=== PATIENT | female | born 1935 | race Caucasian/White ===

== ENCOUNTER 2019-08-02 18:33 | Inpatient (IN) | payer MEDICARE, MEDICAID ==
--- NOTE | 2019-08-02 18:51 | ED Physician Chart ---
ED Chief Complaint/HPI - Patient Information Date Seen:: 08/02/19 Time Seen:: 18:35 Chief Complaint:: frequent falls History of Present Illness:: Patient fell yesterday evening and again at 11:00 this morning. It struck her head when she fell this morning. No loss of consciousness. Patient has been anorexic for 5-6 days. For 3 days she's had diarrhea about 3 times a day. Patient had periumbilical pain 1 hour ago but denies abdominal pain at present. Patient has posterior neck pain. Historian:: Patient, Family Member Review:: Nurse's Note Reviewed ED Review of Systems - Review of Systems General/Constitutional: No fever, No chills Skin: No skin lesions Head: No headache Eyes: No loss of vision ENT: No earache Neck: Neck pain Cardio Vascular: No chest pain, No palpitations Pulmonary: No SOB GI: No nausea, No vomiting, No diarrhea G/U: No dysuria Musculoskeletal: Bone or joint pain Psychiatric: Prior psych history Hematopoietic: No bruising Allergic/Immuno: No urticaria Neurological: No syncope ED Past Medical History - Past Medical History Past Medical History: HTN, Dementia Family History: Diabetes Melitus, HTN Social History: Other (former smoker and alcohol consumer) Surgical History: other (left femur) Psychiatricy History: Dementia Family Medical History - Family Member Mother History Unknown: Yes ED Physical Exam - Physical Examination General/Constitutional: Awake, Well-developed, well-nourished, Alert, No distress Head: Atraumatic Other Head comments:: no swelling, tenderness or deformity Eyes: Lids, conjuctiva normal, PERRL Skin: Nl inspection, No rash ENMT: External ears, nose nl, Nasal exam nl Neck: No stridor Other Neck comments:: Tenderness without deformity of cervical spine; 85 of forward flexion of the neck Respiratory: Nl effort/Exclusion, Clear to Auscultation, No Wheeze/Rhonchi/Rales Cardio Vascular: RRR, No murmur, gallop, rubs, NL S1 S2 GI: No organomegaly, No hernia, Normal BS's Other GI comments:: Epigastric and periumbilical tenderness : No CVA tenderness Other Extremities comments:: Right groin tenderness Neuro/Psych: No focal deficits Other Neuro/Psych comments:: Slightly decreased equal hand grasp Misc: Normal back ED Labs/Radiology/EKG Results - Radiology Results Results: Chest x-ray shows cardiomegaly, calcification of the aortic arch and elevation of right hemidiaphragm; AP of the pelvis shows hardware in lumbar spine and repair left hip fracture with rods - EKG Interpretations Rate & Rhythm: sinus rhythm with a rate of 60 [place]: R axis Comments:: Left ventricular hypertrophy ED Assessment - Assessment General Assessment: Patient endorsed to Dr. Weinstein at 1900 ED Septic Shock - . Is Septic Shock (SBP<90, OR Lactate>4 mmol\L) present?: No
[2019-08-02] MEDS ORDERED: Sodium Chloride 0.9% 1,000 ML IV ONE (19:09)
[2019-08-02 19:33] LABS: ANION GAP 10.1 (7.0-16.0); BUN - UREA NITROGEN 19 mg/dL (7-25); CARBON DIOXIDE 25.5 mEq/L (21.0-31.0); CHLORIDE 102 mEq/L (98-107); CREATININE - SERUM 0.8 mg/dL (0.6-1.2); GLUCOSE 116 mg/dL (70-105); LIPASE 39 U/L (11-82); POTASSIUM SERUM 3.6 mEq/L (3.5-5.1); SODIUM SERUM 134 mEq/L (136-145)
[2019-08-02 20:03] LABS: URINE SOURCE CLEAN C
[2019-08-02 20:07] LABS: URINE BILIRUBIN NEGATIVE (NEGATIVE); URINE BLOOD MODERATE (NEGATIVE); URINE GLUCOSE (UA) NEGATIVE (NEGATIVE); URINE KETONE NEGATIVE (NEGATIVE); URINE LEUKOCYTE ESTERASE LARGE (NEGATIVE); URINE MICROSCOPIC INDICATED? YES; URINE NITRATE POSITIVE (NEGATIVE); URINE PH 6.5 (4.6 - 8.0); URINE PROTEIN NEGATIVE (NEGATIVE); URINE UROBILINOGEN 0.2 E.U./dL (0.2 - 1.0)
[2019-08-02 20:44] LABS: URINE CLARITY HAZY (CLEAR); URINE COLOR YELLOW
[2019-08-02 20:44] LABS: % BASOPHILS 0.3 % (0.0-2.0); % EOSINOPHILS 2.7 % (0.0-5.0); % LYMPHOCYTES 34.3 % (20.0-50.0); % MONOCYTES 8.2 % (2.0-10.0); % NEUTROPHILS 54.5 % (40.0-80.0); EOSINOPHILE ABSOLUTE 0.2 Th/cmm (0.1-0.4); HEMATOCRIT 36.1 % (41.0-60); HEMOGLOBIN 12.3 gm/dL (12-16); LYMPHOCYTE ABSOLUTE 2.6 Th/cmm (1.5-3.0); MEAN CELL VOLUME 88.3 fl (81-100); MONOCYTE ABSOLUTE 0.6 Th/cmm (0.3-1.0); NEUTROPHILE ABSOLUTE 4.1 Th/cmm (1.8-8.0); PLATELET COUNT 230 Th/cmm (150-400); RED BLOOD COUNT 4.09 Mil/cmm (3.80-5.20); RED CELL DISTRIBUTION WIDTH 13.3 % (11.5-20.0); WHITE BLOOD COUNT 7.5 Th/cmm (4.8-10.8)
[2019-08-02 20:48] LABS: URINE BACTERIA 4+ /hpf (NONE SEEN); URINE EPITHELIAL CELLS MODERATE /lpf (FEW); URINE WBC 25-50 /hpf (0-5)
[2019-08-02] MEDS: D5-0.45NS w/20 mEq KCL 1,000 ML IV SCH (23:22)
[2019-08-03 00:12] VITALS: BP 199/81
[2019-08-03] MEDS: Cefepime 1 GM in Sodium Chloride 0.9% 50 ML IV SCH ×2 (08:49→20:28)
--- NOTE | 2019-08-03 08:55 | Diagnostic Imaging Report ---
Exam: CT examination of brain. HISTORY: Frequent falls Total DLP equals 319 CTDI equals 19.1 FINDINGS: Multiple contiguous thin section of the brain were obtained from the base of skull to the vertex without administration of contrast material, no prior studies available comparison. The study demonstrates prominence of cerebral sulci and ventricles consistent with atrophy. There is no evidence of hemorrhage midline shift or edema. There is a question small lacunar infarct in the left basal ganglia. The ventricular systems intact. The bony calvarium is normal. The visualized paranasal sinuses are well aerated. IMPRESSION: Atrophy, small lacunar infarct left basal ganglia.
--- NOTE | 2019-08-03 08:59 | Diagnostic Imaging Report ---
Exam: CT examination cervical spine HISTORY: Tenderness Total DLP equals 319 CTDI equals 19.1 FINDINGS: Multiple contiguous thin section of the cervical spine were obtained in axial plane with coronal sagittal reconstruction technique. No prior studies available comparison. The study demonstrates no evidence of acute fracture dislocation. Degenerative osteophytes noted with narrowing of the intravertebral disc spaces at the C4-C5, C5-C6 and C6-7 intervertebral disc spaces. Posterior spurring and bridging. Neural canal is intact. There is no evidence of spinal stenosis. No prevertebral soft tissue swelling IMPRESSION: Degenerative osteoarthritis cervical spine.
--- NOTE | 2019-08-03 09:01 | Diagnostic Imaging Report ---
Portable chest x-ray Time: 1857 History: Pain Allowing for portable technique the heart size is normal. No focal pulmonary parenchymal processes. No hilar or mediastinal abnormalities. Impression: No acute abnormalities.
--- NOTE | 2019-08-03 09:01 | Diagnostic Imaging Report ---
Exam: Pelvis HISTORY: Right groin pain FINDINGS: Portable summation of pelvis at 1903 views single frontal projection. The study demonstrates a postoperative fusion of the lower lumbar sacral spine. Left hip hardware in place. There is no evidence of fracture dislocation. The right hip joint is intact. The sacroiliac joints intact. IMPRESSION: unremarkable examination of pelvis. Blunting of the left femur with single intratrochanteric screw in place. Heterotropic bone formation left lesser trochanter.
[2019-08-03] MEDS: D5-0.45NS w/20 mEq KCL 1,000 ML IV SCH (11:57)
--- NOTE | 2019-08-03 18:44 | History & Physical ---
ADMIT DATE: 08/02/2019 CHIEF COMPLAINT: Generalized weakness, confusion. HISTORY OF PRESENT ILLNESS: The patient is an 83-year-old female with long history of hypertension, degenerative joint disease, presented to the Emergency Room with confusion. Initial workup significant for urinary infection, acute metabolic encephalopathy, admitted to the hospital, started on IV fluid and antibiotic. No nausea, no vomiting, no abdominal pain, no fever, no chills. PAST MEDICAL HISTORY: Significant for hypertension, degenerative joint disease, mild dementia. PAST SURGICAL HISTORY: No recent surgery. ALLERGIES: None. MEDICATIONS: Follow admission reconciliation. SOCIAL HISTORY: No smoking, no alcohol, no drug. FAMILY HISTORY: Noncontributory. REVIEW OF SYSTEMS: RENAL SYSTEM: No history of chronic renal disorder. CARDIOVASCULAR SYSTEM: No coronary artery disease. ENDOCRINE SYSTEM: No diabetes or thyroid problem. GASTROINTESTINAL SYSTEM: No upper or lower gastrointestinal bleed. NEUROLOGICAL SYSTEM: No seizure disorder. SKELETOMUSCULAR SYSTEM: No muscular dystrophy. HEMATOLOGICAL SYSTEM: No bleeding tendencies. RESPIRATORY SYSTEM: No asthma. GENITOURINARY: No dysuria or hematuria. PHYSICAL EXAMINATION: GENERAL: She is awake, alert, mildly confused. VITAL SIGNS: Temperature is 99, heart rate is 94, blood pressure 149/72. HEENT: Normocephalic. Pupils reacting equal to light and accommodation. Sclerae clear. NECK: Supple. Negative for lymphadenopathy, JVD or bruit. CHEST: Entry of air bilaterally normal. No rhonchi or wheezing. HEART: S1, S2 normal. No gallop rhythm. ABDOMEN: Soft, bowel sounds positive. EXTREMITIES: No edema. BACK: No tenderness. SKIN: Intact. NEUROLOGIC: She is awake, alert, mildly confused. No focal muscle deficits. Cranial nerves 2-12 grossly intact. LABORATORY DATA: White blood 7.5, hemoglobin 12.3, hematocrit 36.1 and platelet 230. Sodium 134, potassium 3.6, BUN is 19, creatinine 0.8, glucose 116. Urinalysis positive for nitrite, white blood cell is 25-50. ASSESSMENT: 1. Acute metabolic encephalopathy. 2. Urinary tract infection. 3. Hypertension. 4. Degenerative joint disease. PLAN: The patient admitted to the hospital under Dr. Ledezma's service. Started on IV fluid, antibiotic, regular diet. The patient will resume her home medication. The patient is a full code. [facility]# [id number]
[2019-08-04] MEDS: D5-0.45NS w/20 mEq KCL 1,000 ML IV SCH ×2 (06:31→22:05)
[2019-08-04] MEDS ORDERED: Non-Formulary Item 1 EA (Lisinopril [Lisinopril] 40 MG) PO SCH (09:00)
[2019-08-04] MEDS: Cefepime 1 GM in Sodium Chloride 0.9% 50 ML IV SCH ×2 (09:09→20:33)
[2019-08-04] MEDS: Enoxaparin 40 mg/0.4 mL 0.4mL Syr SUBQ SCH (09:10)
[2019-08-04] MEDS ORDERED: Probiotic Screen MC PRN (11:05)
[2019-08-04] MEDS ORDERED: Acetaminophen 500 MG TAB PO PRN (21:06)
--- NOTE | 2019-08-04 22:37 | Internal Medicine Prog Note ---
Internal Medicine Subjective - Subjective Service Date: 08/04/19 Patient seen and examined:: without staff (SHE HAS ABDOMINAL PAIN AND THROUGHING UP.) Patient is:: awake, verbal, in bed, talking Per staff patient has:: no adverse event Internal Medicine Objective - Results Result Diagrams: 08/02/19 19:10 08/02/19 19:10 Recent Labs: Laboratory Last Values WBC 7.5 Th/cmm (4.8-10.8) 08/02/19 19:10 RBC 4.09 Mil/cmm (3.80-5.20) 08/02/19 19:10 Hgb 12.3 gm/dL (12-16) 08/02/19 19:10 Hct 36.1 % (41.0-60) L 08/02/19 19:10 MCV 88.3 fl (81-100) 08/02/19 19:10 MCH 30.0 pg (27.0-31.0) 08/02/19 19:10 MCHC Differential 34.0 pg (28.0-36.0) 08/02/19 19:10 RDW 13.3 % (11.5-20.0) 08/02/19 19:10 Plt Count 230 Th/cmm (150-400) 08/02/19 19:10 MPV 9.9 fl 08/02/19 19:10 Neutrophils % 54.5 % (40.0-80.0) 08/02/19 19:10 Lymphocytes % 34.3 % (20.0-50.0) 08/02/19 19:10 Monocytes % 8.2 % (2.0-10.0) 08/02/19 19:10 Eosinophils % 2.7 % (0.0-5.0) 08/02/19 19:10 Basophils % 0.3 % (0.0-2.0) 08/02/19 19:10 Sodium 134 mEq/L (136-145) L 08/02/19 19:10 Potassium 3.6 mEq/L (3.5-5.1) 08/02/19 19:10 Chloride 102 mEq/L (98-107) 08/02/19 19:10 Carbon Dioxide 25.5 mEq/L (21.0-31.0) 08/02/19 19:10 Anion Gap 10.1 (7.0-16.0) 08/02/19 19:10 BUN 19 mg/dL (7-25) 08/02/19 19:10 Creatinine 0.8 mg/dL (0.6-1.2) 08/02/19 19:10 Est GFR ( Amer) TNP 08/02/19 19:10 Est GFR (Non-Af Amer) TNP 08/02/19 19:10 BUN/Creatinine Ratio 23.8 08/02/19 19:10 Glucose 116 mg/dL (70-105) H 08/02/19 19:10 Calcium 9.0 mg/dL (8.6-10.3) 08/02/19 19:10 Lipase 39 U/L (11-82) 08/02/19 19:10 Urine Source CLEAN C 08/02/19 20:00 Urine Color YELLOW 08/02/19 20:00 Urine Clarity HAZY (CLEAR) 08/02/19 20:00 Urine pH 6.5 (4.6 - 8.0) 08/02/19 20:00 Ur Specific [place] 1.010 (1.005-1.030) 08/02/19 20:00 Urine Protein NEGATIVE mg/dL (NEGATIVE) 08/02/19 20:00 Urine Glucose (UA) NEGATIVE mg/dL (NEGATIVE) 08/02/19 20:00 Urine Ketones NEGATIVE mg/dL (NEGATIVE) 08/02/19 20:00 Urine Blood MODERATE (NEGATIVE) H 08/02/19 20:00 Urine Nitrate POSITIVE (NEGATIVE) H 08/02/19 20:00 Urine Bilirubin NEGATIVE (NEGATIVE) 08/02/19 20:00 Urine Urobilinogen 0.2 E.U./dL (0.2 - 1.0) 08/02/19 20:00 Ur Leukocyte Esterase LARGE (NEGATIVE) H 08/02/19 20:00 Urine RBC 5-10 /hpf (0-5) H 08/02/19 20:00 Urine WBC 25-50 /hpf (0-5) H 08/02/19 20:00 Ur Epithelial Cells MODERATE /lpf (FEW) 08/02/19 20:00 Urine Bacteria 4+ /hpf (NONE SEEN) H 08/02/19 20:00 - Physical Exam Vitals and I&O: Vital Signs Temp 98 F 08/04/19 20:00 Pulse 67 08/04/19 22:07 Resp 18 08/04/19 20:00 BP 185/78 08/04/19 22:07 Pulse Ox 97 08/04/19 20:00 Intake & Output 08/04/19 08/04/19 08/05/19 06:59 18:59 06:59 Intake Total 3336 468 6916 Balance 7508 695 5069 Weight (lbs) 63.957 kg 64.864 kg Intake: Intake, IV Amount 1050 50 1000 Cefepime 1 gm In Sodium 50 50 Chloride 0.9% 50 ml @ 100 mls/hr IV Q12HR [facility] Rx#: [id number] D5-0.45NS w/20 mEq KCL 1, 1000 1000 000 ml @ 75 mls/hr IV . [id number] [facility] Rx#:[id number] Oral 250 650 Other: # Voids 2 3 # Bowel Movements 1 0 Weight Source Bedscale Bedscale Active Medications: Current Medications Acetaminophen (Tylenol Extra Strength) 500 mg PO Q4H PRN PRN Reason: Pain (Mild) Stop: 10/03/19 21:05 Last Admin: 08/04/19 22:07 Dose: 500 mg Aspirin (Ecotrin) 81 mg PO DAILY [facility] Stop: 10/03/19 08:59 Last Admin: 08/04/19 09:09 Dose: 81 mg Atenolol (Tenormin) 25 mg PO BID [facility] Stop: 10/03/19 08:59 Last Admin: 08/04/19 17:32 Dose: 25 mg Enoxaparin Sodium (Lovenox) 40 mg SUBQ DAILY [facility] Stop: 10/03/19 08:59 Last Admin: 08/04/19 09:10 Dose: 40 mg Hydralazine HCl (Apresoline 20 Mg/Ml) 10 mg IV Q4HR PRN PRN Reason: SBP ABOVE 160 Stop: 10/02/19 01:12 Last Admin: 08/04/19 22:07 Dose: 10 mg Cefepime HCl 1 gm/ Sodium (Chloride) 50 mls @ 100 mls/hr IV Q12HR [facility] Stop: 10/02/19 08:59 Last Admin: 08/04/19 20:33 Dose: 100 mls/hr Potassium Chloride/Dextrose/Sod Cl (D5-0.45ns W/20 Meq Kcl) 1,000 mls @ 75 mls/ hr IV .[id number] [facility] Stop: 10/01/19 22:59 Last Admin: 08/04/19 22:05 Dose: 75 mls/hr Lactobacillus Rhamnosus (Culturelle 15b) 1 each PO DAILY [facility] Stop: 10/04/19 08:59 Losartan Potassium (Cozaar) 50 mg PO BID [facility] Stop: 10/02/19 01:14 Last Admin: 08/04/19 17:32 Dose: 50 mg Miscellaneous (Lisinopril [Lisinopril]) 40 mg PO DAILY [facility] Stop: 10/03/19 08:59 Miscellaneous (Probiotic Screen) 1 ea MC PRN PRN PRN Reason: PROTOCOL Stop: 10/03/19 11:04 Ondansetron HCl (Zofran) 4 mg IV Q4H PRN PRN Reason: Nausea / Vomiting Stop: 10/03/19 21:02 Temazepam (Restoril) 15 mg PO HS PRN; Protocol PRN Reason: Insomnia Stop: 10/03/19 21:04 General: alert HEENT: NC/AT, PERRLA, EOMI, anicteric sclerae, throat clear Neck: Supple, No JVD, No thyromegaly, +2 carotid pulse wo bruit, No LAD Lungs: CTAB Cardiovascular: RRR, Normal S1, Normal S2, without murmur Abdomen: soft, tender Extremities: clear Neurological: no change Internal Medicine Assmt/Plan - Assessment Assessment: 1.ACUTE ABDOMINAL PAIN. 2.UTI. 3.HTN - Plan Plan: ZOFRAN 4 MG IV EVERY 4 H PRN FOR NAUSEA.ABDOMINAL US IN AM. Nutritional Asmnt/Malnutr-PDOC - Dietary Evaluation Malnutrition Findings (Please click <Entered> for more info): Nutritional Asmnt/Malnutrition Start: 08/03/19 14: 23 Text: Status: Complete Freq: Protocol: Document 08/03/19 14:23 OKSANA (Rec: 08/03/19 14:39 [email or web address]) Nutritional Asmnt/Malnutrition Patient General Information Nutritional Screening Low Risk Consult Diagnosis Dehydration and UTI Pertinent Medical Hx/Surgical Hx HTN, Dementia Subjective Information IA/Consult: Wound RT lower flank Pt is a 83-year-old female admitted on 08/02 d/t dehydration and UTI. Per ED physician chart (08/02), PT fell evening on 08/01 and again at 11am on 08/02; Pt has been anorexic x 5-6 days and had diarrhea 3x/day for 3 days. Received consult order for wound - RT lower flank. Per ABIMAEL Bartlett, there is a small active wound at RT lower flank and stage not noted. Pending photo taken for wound and wound care assessment. Pt ate 25% breakfast today. Visited Pt at lunch time, Pt stated she currently does not have appetite and usually does not eat breakfast at home. Pt ate 50% lunch and has no concern on food texture. Assessed Pts food preference and forwarded to dietitian teaching. Pt requested Ensure Enlive since she prefers liquids. Added Ensure Enlive BID for improved PO intake and meeting nutrient needs to support wound healing . Will continue monitor on PO intake and wound healing progress. HT: 51 WT: 141 LB (64.09 kg) BMI: 26.64 (Overweight) GI: WNL, Soft, Flat, Non- Tender BM: Not Noted I/O: 120/Not Noted Skin: Warm, Dry, Elastic, Intact, Area of Concern Wound: Pressure area and incision on RT lower flank Lionel: 16 Diet Order: Mechanical Soft Estimated Energy Needs: ( Geriatric, CBW) 9207-9744 kcals (25-30 kcals/ kg) 64-77 g Pro (1-1.2 g/kg) 8467-8691 ml (25-30 ml/kg) Current Diet Order/ Nutrition Support Mechanical Soft Pertinent Medications Cozaar, D5-0.45ns w/20 Meq Kcl Pertinent Labs 08/02: Hgb/Hct 12.3/36.1, Na 134 , Glucose 116 Nutritional Hx/Data Height 1.55 m Height (Calculated Centimeters) 154.9 Current Weight (lbs) 63.957 kg Weight (Calculated Kilograms) 64.0 Weight (Calculated Grams) 16876.5 [place] Body Weight 47.8 kg % [place] Body Weight 134 Body Mass Index (BMI) 26.6 Weight Status Overweight GI Symptoms Last BM Not Noted Skin Integrity/Comment: Skin: Warm, Dry, Elastic, Intact, Area of Concern Wound: Pressure area and incision on RT lower flank Lionel: 16 Current %PO Poor (25-49%) Estimated Nutritional Goals BEE in Kcals: Using Current wt Calories/Kcals/Kg 25-30 Kcals Calculated 8005-3414 Protein: Using Current wt Protein g/k-1.2 Protein Calculated 64-77 Fluid: ml 5888-8525 ml (25-30 ml/kg) Nutritional Problem 1. Problem Problem Inadequate oral intake Etiology r/t poor appetite Signs/Symptoms: aeb PO intake 25% at breakfast and 50% lunch on 08/03 per Pt self-reported Intervention/Recommendation Comments 1.Continue with mechanical soft diet as ordered. 2.Added Ensure Enlive BID for improved PO intake and meeting nutrient needs to support wound healing (completed). 3.RN to encourage improved PO intake. Expected Outcomes/Goals Expected Outcomes/Goals 1.PO intake to meet 75% of nutritional needs. 2.Monitor PO intake, wt, nutrition related labs, and skin integrity to trend WNL. 3.F/U as high risk in 2-3 days , 08/05-08/06
[2019-08-05 06:13] LABS: % BASOPHILS 0.6 % (0.0-2.0); % LYMPHOCYTES 28.6 % (20.0-50.0); % MONOCYTES 10.2 % (2.0-10.0); % NEUTROPHILS 57.6 % (40.0-80.0); BASOPHILE ABSOLUTE 0.1 Th/cumm (0-0.2); EOSINOPHILE ABSOLUTE 0.3 Th/cmm (0.1-0.4); HEMATOCRIT 40.3 % (41.0-60); HEMOGLOBIN 13.5 gm/dL (12-16); LYMPHOCYTE ABSOLUTE 2.5 Th/cmm (1.5-3.0); MEAN CELL VOLUME 89.7 fl (81-100); MEAN CORPUSCULAR HGB CONC 33.4 pg (28.0-36.0); MONOCYTE ABSOLUTE 0.9 Th/cmm (0.3-1.0); PLATELET COUNT 262 Th/cmm (150-400); RED CELL DISTRIBUTION WIDTH 13.3 % (11.5-20.0); WHITE BLOOD COUNT 8.8 Th/cmm (4.8-10.8)
[2019-08-05 06:15] LABS: ALB/GLOB RATIO 0.8 (1.0-1.8); ALBUMIN 3.5 gm/dL (3.7-5.3); ALKALINE PHOSPHATASE 79 U/L (34-104); ANION GAP 7.9 (7.0-16.0); BILIRUBIN,TOTAL 0.8 mg/dL (0.3-1.0); BUN - UREA NITROGEN 12 mg/dL (7-25); CALCIUM SERUM 8.7 mg/dL (8.6-10.3); CHLORIDE 99 mEq/L (98-107); CREATININE - SERUM 0.6 mg/dL (0.6-1.2); GLUCOSE 137 mg/dL (70-105); LIPASE 25 U/L (11-82); POTASSIUM SERUM 3.9 mEq/L (3.5-5.1); SGOT 13 U/L (13-39); SGPT/ALT 9 U/L (7-52); SODIUM SERUM 128 mEq/L (136-145); TOTAL PROTEIN,SERUM 7.7 gm/dL (6.0-8.3)
[2019-08-05] MEDS: Cefepime 1 GM in Sodium Chloride 0.9% 50 ML IV SCH ×2 (09:45→21:01)
[2019-08-05] MEDS: Enoxaparin 40 mg/0.4 mL 0.4mL Syr SUBQ SCH (10:25)
[2019-08-05] MEDS: Lactobacillus Rhamnosus GG 15 Billion CFU CAP.SPRINK PO SCH (10:25)
--- NOTE | 2019-08-05 10:46 | Diagnostic Imaging Report ---
Ultrasound abdomen HISTORY: Abdominal pain COMPARISON: None Technique: Sonography of the abdomen was performed in multiple planes. FINDINGS: Exam is limited due to bowel gas. The liver demonstrates normal echogenicity. The hepatic margins are not well-defined however no obvious focal lesions.. The liver measures 14.9 cm. No evidence of gallstones or gallbladder wall thickening. The common bile duct 3 4 mm. Evaluation of the pancreas is limited due to bowel gas. The right kidney measures 10.3 x 5.5 cm. No evidence of focal lesions or hydronephrosis. The left kidney measures 8.7 x 5.2 cm. No evidence of focal lesions or hydronephrosis. The spleen 9.5 cm. IMPRESSION: No evidence of gallstones No evidence of hydronephrosis.
--- NOTE | 2019-08-05 11:02 | Internal Medicine Prog Note ---
Internal Medicine Subjective - Subjective Service Date: 08/05/19 Patient seen and examined:: with staff (SHE FEELS BETTER,NO VOMITING.) Patient is:: awake, verbal, in bed, talking Per staff patient has:: no adverse event Internal Medicine Objective - Results Result Diagrams: 08/05/19 05:51 08/05/19 05:51 Recent Labs: Laboratory Last Values WBC 8.8 Th/cmm (4.8-10.8) 08/05/19 05:51 RBC 4.50 Mil/cmm (3.80-5.20) 08/05/19 05:51 Hgb 13.5 gm/dL (12-16) 08/05/19 05:51 Hct 40.3 % (41.0-60) L 08/05/19 05:51 MCV 89.7 fl (81-100) 08/05/19 05:51 MCH 30.0 pg (27.0-31.0) 08/05/19 05:51 MCHC Differential 33.4 pg (28.0-36.0) 08/05/19 05:51 RDW 13.3 % (11.5-20.0) 08/05/19 05:51 Plt Count 262 Th/cmm (150-400) 08/05/19 05:51 MPV 8.2 fl 08/05/19 05:51 Neutrophils % 57.6 % (40.0-80.0) 08/05/19 05:51 Lymphocytes % 28.6 % (20.0-50.0) 08/05/19 05:51 Monocytes % 10.2 % (2.0-10.0) H 08/05/19 05:51 Eosinophils % 3.0 % (0.0-5.0) 08/05/19 05:51 Basophils % 0.6 % (0.0-2.0) 08/05/19 05:51 Sodium 128 mEq/L (136-145) L 08/05/19 05:51 Potassium 3.9 mEq/L (3.5-5.1) 08/05/19 05:51 Chloride 99 mEq/L (98-107) 08/05/19 05:51 Carbon Dioxide 25.0 mEq/L (21.0-31.0) 08/05/19 05:51 Anion Gap 7.9 (7.0-16.0) 08/05/19 05:51 BUN 12 mg/dL (7-25) 08/05/19 05:51 Creatinine 0.6 mg/dL (0.6-1.2) 08/05/19 05:51 Est GFR ( Amer) TNP 08/05/19 05:51 Est GFR (Non-Af Amer) TNP 08/05/19 05:51 BUN/Creatinine Ratio 20.0 08/05/19 05:51 Glucose 137 mg/dL (70-105) H 08/05/19 05:51 Calcium 8.7 mg/dL (8.6-10.3) 08/05/19 05:51 Total Bilirubin 0.8 mg/dL (0.3-1.0) 08/05/19 05:51 AST 13 U/L (13-39) 08/05/19 05:51 ALT 9 U/L (7-52) 08/05/19 05:51 Alkaline Phosphatase 79 U/L (34-104) 08/05/19 05:51 Total Protein 7.7 gm/dL (6.0-8.3) 08/05/19 05:51 Albumin 3.5 gm/dL (3.7-5.3) L 08/05/19 05:51 Globulin 4.2 gm/dL 08/05/19 05:51 Albumin/Globulin Ratio 0.8 (1.0-1.8) L 08/05/19 05:51 Amylase 51 U/L (29-103) 08/05/19 05:51 Lipase 25 U/L (11-82) 08/05/19 05:51 Urine Source CLEAN C 08/02/19 20:00 Urine Color YELLOW 08/02/19 20:00 Urine Clarity HAZY (CLEAR) 08/02/19 20:00 Urine pH 6.5 (4.6 - 8.0) 08/02/19 20:00 Ur Specific [place] 1.010 (1.005-1.030) 08/02/19 20:00 Urine Protein NEGATIVE mg/dL (NEGATIVE) 08/02/19 20:00 Urine Glucose (UA) NEGATIVE mg/dL (NEGATIVE) 08/02/19 20:00 Urine Ketones NEGATIVE mg/dL (NEGATIVE) 08/02/19 20:00 Urine Blood MODERATE (NEGATIVE) H 08/02/19 20:00 Urine Nitrate POSITIVE (NEGATIVE) H 08/02/19 20:00 Urine Bilirubin NEGATIVE (NEGATIVE) 08/02/19 20:00 Urine Urobilinogen 0.2 E.U./dL (0.2 - 1.0) 08/02/19 20:00 Ur Leukocyte Esterase LARGE (NEGATIVE) H 08/02/19 20:00 Urine RBC 5-10 /hpf (0-5) H 08/02/19 20:00 Urine WBC 25-50 /hpf (0-5) H 08/02/19 20:00 Ur Epithelial Cells MODERATE /lpf (FEW) 08/02/19 20:00 Urine Bacteria 4+ /hpf (NONE SEEN) H 08/02/19 20:00 - Physical Exam Vitals and I&O: Vital Signs Temp 97.6 F 08/05/19 08:00 Pulse 64 08/05/19 10:25 Resp 17 08/05/19 08:00 BP 153/67 08/05/19 10:25 Pulse Ox 98 08/05/19 08:00 Intake & Output 08/04/19 08/05/19 08/05/19 18:59 06:59 18:59 Intake Total 700 1300 Balance 700 1300 Weight (lbs) 64.864 kg 69.082 kg Intake: Intake, IV Amount 50 1050 Cefepime 1 gm In Sodium 50 50 Chloride 0.9% 50 ml @ 100 mls/hr IV Q12HR [facility] Rx#: [id number] D5-0.45NS w/20 mEq KCL 1, 1000 000 ml @ 75 mls/hr IV . [id number] [facility] Rx#:[id number] Oral 650 200 Other 50 Other: # Voids 3 2 # Bowel Movements 0 Weight Source Bedscale Bedscale Active Medications: Current Medications Acetaminophen (Tylenol Extra Strength) 500 mg PO Q4H PRN PRN Reason: Pain (Mild) Stop: 10/03/19 21:05 Last Admin: 08/04/19 22:07 Dose: 500 mg Aspirin (Ecotrin) 81 mg PO DAILY [facility] Stop: 10/03/19 08:59 Last Admin: 08/05/19 10:24 Dose: 81 mg Atenolol (Tenormin) 25 mg PO BID [facility] Stop: 10/03/19 08:59 Last Admin: 08/05/19 10:24 Dose: 25 mg Enoxaparin Sodium (Lovenox) 40 mg SUBQ DAILY [facility] Stop: 10/03/19 08:59 Last Admin: 08/05/19 10:25 Dose: 40 mg Hydralazine HCl (Apresoline 20 Mg/Ml) 10 mg IV Q4HR PRN PRN Reason: SBP ABOVE 160 Stop: 10/02/19 01:12 Last Admin: 08/04/19 22:07 Dose: 10 mg Cefepime HCl 1 gm/ Sodium (Chloride) 50 mls @ 100 mls/hr IV Q12HR [facility] Stop: 10/02/19 08:59 Last Admin: 08/05/19 09:45 Dose: 100 mls/hr Potassium Chloride/Dextrose/Sod Cl (D5-0.45ns W/20 Meq Kcl) 1,000 mls @ 75 mls/ hr IV .[id number] [facility] Stop: 10/01/19 22:59 Last Admin: 08/04/19 22:05 Dose: 75 mls/hr Lactobacillus Rhamnosus (Culturelle 15b) 1 each PO DAILY [facility] Stop: 10/04/19 08:59 Last Admin: 08/05/19 10:25 Dose: 1 each Losartan Potassium (Cozaar) 50 mg PO BID [facility] Stop: 10/02/19 01:14 Last Admin: 08/05/19 10:25 Dose: 50 mg Miscellaneous (Lisinopril [Lisinopril]) 40 mg PO DAILY [facility] Stop: 10/03/19 08:59 Miscellaneous (Probiotic Screen) 1 ea MC PRN PRN PRN Reason: PROTOCOL Stop: 10/03/19 11:04 Ondansetron HCl (Zofran) 4 mg IV Q4H PRN PRN Reason: Nausea / Vomiting Stop: 10/03/19 21:02 Last Admin: 08/04/19 23:35 Dose: 4 mg Temazepam (Restoril) 15 mg PO HS PRN; Protocol PRN Reason: Insomnia Stop: 10/03/19 21:04 General: alert HEENT: NC/AT, PERRLA, EOMI, anicteric sclerae, throat clear Neck: Supple, No JVD, No thyromegaly, +2 carotid pulse wo bruit, No LAD Lungs: CTAB Cardiovascular: RRR, Normal S1, Normal S2, without murmur Abdomen: soft, tender Extremities: clear Neurological: no change Internal Medicine Assmt/Plan - Assessment Assessment: 1.ACUTE ABDOMINAL PAIN. 2.UTI. 3.HTN - Plan Plan: CONTINUE ON CURRENT MEDICATION AND DIET. Nutritional Asmnt/Malnutr-PDOC - Dietary Evaluation Malnutrition Findings (Please click <Entered> for more info): Nutritional Asmnt/Malnutrition Start: 08/03/19 14: 23 Text: Status: Complete Freq: Protocol: Document 08/03/19 14:23 OKSANA (Rec: 08/03/19 14:39 [email or web address] [email or web address]) Nutritional Asmnt/Malnutrition Patient General Information Nutritional Screening Low Risk Consult Diagnosis Dehydration and UTI Pertinent Medical Hx/Surgical Hx HTN, Dementia Subjective Information IA/Consult: Wound RT lower flank Pt is a 83-year-old female admitted on 08/02 d/t dehydration and UTI. Per ED physician chart (08/02), PT fell evening on 08/01 and again at 11am on 08/02; Pt has been anorexic x 5-6 days and had diarrhea 3x/day for 3 days. Received consult order for wound - RT lower flank. Per RN Tri, there is a small active wound at RT lower flank and stage not noted. Pending photo taken for wound and wound care assessment. Pt ate 25% breakfast today. Visited Pt at lunch time, Pt stated she currently does not have appetite and usually does not eat breakfast at home. Pt ate 50% lunch and has no concern on food texture. Assessed Pts food preference and forwarded to dietetic aide. Pt requested Ensure Enlive since she prefers liquids. Added Ensure Enlive BID for improved PO intake and meeting nutrient needs to support wound healing . Will continue monitor on PO intake and wound healing progress. HT: 51 WT: 141 LB (64.09 kg) BMI: 26.64 (Overweight) GI: WNL, Soft, Flat, Non- Tender BM: Not Noted I/O: 120/Not Noted Skin: Warm, Dry, Elastic, Intact, Area of Concern Wound: Pressure area and incision on RT lower flank Lionel: 16 Diet Order: Mechanical Soft Estimated Energy Needs: ( Geriatric, CBW) 0288-0521 kcals (25-30 kcals/ kg) 64-77 g Pro (1-1.2 g/kg) 3400-5922 ml (25-30 ml/kg) Current Diet Order/ Nutrition Support Mechanical Soft Pertinent Medications Cozaar, D5-0.45ns w/20 Meq Kcl Pertinent Labs 08/02: Hgb/Hct 12.3/36.1, Na 134 , Glucose 116 Nutritional Hx/Data Height 1.55 m Height (Calculated Centimeters) 154.9 Current Weight (lbs) 63.957 kg Weight (Calculated Kilograms) 64.0 Weight (Calculated Grams) 71073.5 [place] Body Weight 47.8 kg % [place] Body Weight 134 Body Mass Index (BMI) 26.6 Weight Status Overweight GI Symptoms Last BM Not Noted Skin Integrity/Comment: Skin: Warm, Dry, Elastic, Intact, Area of Concern Wound: Pressure area and incision on RT lower flank Lionel: 16 Current %PO Poor (25-49%) Estimated Nutritional Goals BEE in Kcals: Using Current wt Calories/Kcals/Kg 25-30 Kcals Calculated 4603-8469 Protein: Using Current wt Protein g/k-1.2 Protein Calculated 64-77 Fluid: ml 5647-4136 ml (25-30 ml/kg) Nutritional Problem 1. Problem Problem Inadequate oral intake Etiology r/t poor appetite Signs/Symptoms: aeb PO intake 25% at breakfast and 50% lunch on 08/03 per Pt self-reported Intervention/Recommendation Comments 1.Continue with mechanical soft diet as ordered. 2.Added Ensure Enlive BID for improved PO intake and meeting nutrient needs to support wound healing (completed). 3.RN to encourage improved PO intake. Expected Outcomes/Goals Expected Outcomes/Goals 1.PO intake to meet 75% of nutritional needs. 2.Monitor PO intake, wt, nutrition related labs, and skin integrity to trend WNL. 3.F/U as high risk in 2-3 days , 08/05-08/06
[2019-08-05] MEDS: D5-0.45NS w/20 mEq KCL 1,000 ML IV SCH (15:34)
[2019-08-06] MEDS: Lactobacillus Rhamnosus GG 15 Billion CFU CAP.SPRINK PO SCH (08:41)
[2019-08-06] MEDS: Enoxaparin 40 mg/0.4 mL 0.4mL Syr SUBQ SCH (08:41)
[2019-08-06] MEDS: Cefepime 1 GM in Sodium Chloride 0.9% 50 ML IV SCH ×2 (08:42→20:27)
[2019-08-06] MEDS: D5-0.45NS w/20 mEq KCL 1,000 ML IV SCH (11:37)
--- NOTE | 2019-08-06 18:26 | Internal Medicine Prog Note ---
Internal Medicine Subjective - Subjective Service Date: 08/06/19 Patient seen and examined:: without staff (SHE FEELS WELL,NO PAIN.) Patient is:: awake, verbal, in bed, talking Per staff patient has:: no adverse event Internal Medicine Objective - Results Result Diagrams: 08/05/19 05:51 08/05/19 05:51 Recent Labs: Laboratory Last Values WBC 8.8 Th/cmm (4.8-10.8) 08/05/19 05:51 RBC 4.50 Mil/cmm (3.80-5.20) 08/05/19 05:51 Hgb 13.5 gm/dL (12-16) 08/05/19 05:51 Hct 40.3 % (41.0-60) L 08/05/19 05:51 MCV 89.7 fl (81-100) 08/05/19 05:51 MCH 30.0 pg (27.0-31.0) 08/05/19 05:51 MCHC Differential 33.4 pg (28.0-36.0) 08/05/19 05:51 RDW 13.3 % (11.5-20.0) 08/05/19 05:51 Plt Count 262 Th/cmm (150-400) 08/05/19 05:51 MPV 8.2 fl 08/05/19 05:51 Neutrophils % 57.6 % (40.0-80.0) 08/05/19 05:51 Lymphocytes % 28.6 % (20.0-50.0) 08/05/19 05:51 Monocytes % 10.2 % (2.0-10.0) H 08/05/19 05:51 Eosinophils % 3.0 % (0.0-5.0) 08/05/19 05:51 Basophils % 0.6 % (0.0-2.0) 08/05/19 05:51 Sodium 128 mEq/L (136-145) L 08/05/19 05:51 Potassium 3.9 mEq/L (3.5-5.1) 08/05/19 05:51 Chloride 99 mEq/L (98-107) 08/05/19 05:51 Carbon Dioxide 25.0 mEq/L (21.0-31.0) 08/05/19 05:51 Anion Gap 7.9 (7.0-16.0) 08/05/19 05:51 BUN 12 mg/dL (7-25) 08/05/19 05:51 Creatinine 0.6 mg/dL (0.6-1.2) 08/05/19 05:51 Est GFR ( Amer) TNP 08/05/19 05:51 Est GFR (Non-Af Amer) TNP 08/05/19 05:51 BUN/Creatinine Ratio 20.0 08/05/19 05:51 Glucose 137 mg/dL (70-105) H 08/05/19 05:51 Calcium 8.7 mg/dL (8.6-10.3) 08/05/19 05:51 Total Bilirubin 0.8 mg/dL (0.3-1.0) 08/05/19 05:51 AST 13 U/L (13-39) 08/05/19 05:51 ALT 9 U/L (7-52) 08/05/19 05:51 Alkaline Phosphatase 79 U/L (34-104) 08/05/19 05:51 Total Protein 7.7 gm/dL (6.0-8.3) 08/05/19 05:51 Albumin 3.5 gm/dL (3.7-5.3) L 08/05/19 05:51 Globulin 4.2 gm/dL 08/05/19 05:51 Albumin/Globulin Ratio 0.8 (1.0-1.8) L 08/05/19 05:51 Amylase 51 U/L (29-103) 08/05/19 05:51 Lipase 25 U/L (11-82) 08/05/19 05:51 Urine Source CLEAN C 08/02/19 20:00 Urine Color YELLOW 08/02/19 20:00 Urine Clarity HAZY (CLEAR) 08/02/19 20:00 Urine pH 6.5 (4.6 - 8.0) 08/02/19 20:00 Ur Specific [place] 1.010 (1.005-1.030) 08/02/19 20:00 Urine Protein NEGATIVE mg/dL (NEGATIVE) 08/02/19 20:00 Urine Glucose (UA) NEGATIVE mg/dL (NEGATIVE) 08/02/19 20:00 Urine Ketones NEGATIVE mg/dL (NEGATIVE) 08/02/19 20:00 Urine Blood MODERATE (NEGATIVE) H 08/02/19 20:00 Urine Nitrate POSITIVE (NEGATIVE) H 08/02/19 20:00 Urine Bilirubin NEGATIVE (NEGATIVE) 08/02/19 20:00 Urine Urobilinogen 0.2 E.U./dL (0.2 - 1.0) 08/02/19 20:00 Ur Leukocyte Esterase LARGE (NEGATIVE) H 08/02/19 20:00 Urine RBC 5-10 /hpf (0-5) H 08/02/19 20:00 Urine WBC 25-50 /hpf (0-5) H 08/02/19 20:00 Ur Epithelial Cells MODERATE /lpf (FEW) 08/02/19 20:00 Urine Bacteria 4+ /hpf (NONE SEEN) H 08/02/19 20:00 - Physical Exam Vitals and I&O: Vital Signs Temp 97.8 F 08/06/19 16:00 Pulse 82 08/06/19 16:26 Resp 19 08/06/19 16:00 BP 112/85 08/06/19 16:26 Pulse Ox 96 08/06/19 04:20 Intake & Output 08/05/19 08/06/19 08/06/19 18:59 06:59 18:59 Intake Total 1050 1300 Balance 1050 1300 Weight (lbs) 71.713 kg 71.713 kg Intake: Intake, IV Amount 1050 1050 Cefepime 1 gm In Sodium 50 50 Chloride 0.9% 50 ml @ 100 mls/hr IV Q12HR [facility] Rx#: [id number] D5-0.45NS w/20 mEq KCL 1, 1000 1000 000 ml @ 75 mls/hr IV . [id number] [facility] Rx#:[id number] Oral 200 Other 50 Other: # Voids 3 Weight Source Bedscale Bedscale Active Medications: Current Medications Acetaminophen (Tylenol Extra Strength) 500 mg PO Q4H PRN PRN Reason: Pain (Mild) Stop: 10/03/19 21:05 Last Admin: 08/04/19 22:07 Dose: 500 mg Aspirin (Ecotrin) 81 mg PO DAILY [facility] Stop: 10/03/19 08:59 Last Admin: 08/06/19 08:40 Dose: 81 mg Atenolol (Tenormin) 25 mg PO BID [facility] Stop: 10/03/19 08:59 Last Admin: 08/06/19 16:26 Dose: 25 mg Enoxaparin Sodium (Lovenox) 40 mg SUBQ DAILY [facility] Stop: 10/03/19 08:59 Last Admin: 08/06/19 08:41 Dose: 40 mg Hydralazine HCl (Apresoline 20 Mg/Ml) 10 mg IV Q4HR PRN PRN Reason: SBP ABOVE 160 Stop: 10/02/19 01:12 Last Admin: 08/06/19 04:14 Dose: 10 mg Cefepime HCl 1 gm/ Sodium (Chloride) 50 mls @ 100 mls/hr IV Q12HR [facility] Stop: 10/02/19 08:59 Last Admin: 08/06/19 08:42 Dose: 100 mls/hr Potassium Chloride/Dextrose/Sod Cl (D5-0.45ns W/20 Meq Kcl) 1,000 mls @ 75 mls/ hr IV .[id number] [facility] Stop: 10/01/19 22:59 Last Admin: 08/06/19 11:37 Dose: 75 mls/hr Lactobacillus Rhamnosus (Culturelle 15b) 1 each PO DAILY [facility] Stop: 10/04/19 08:59 Last Admin: 08/06/19 08:41 Dose: 1 each Losartan Potassium (Cozaar) 50 mg PO BID [facility] Stop: 10/02/19 01:14 Last Admin: 08/06/19 16:26 Dose: 50 mg Miscellaneous (Lisinopril [Lisinopril]) 40 mg PO DAILY [facility] Stop: 10/03/19 08:59 Miscellaneous (Probiotic Screen) 1 ea PRN PRN PRN Reason: PROTOCOL Stop: 10/03/19 11:04 Ondansetron HCl (Zofran) 4 mg IV Q4H PRN PRN Reason: Nausea / Vomiting Stop: 10/03/19 21:02 Last Admin: 08/04/19 23:35 Dose: 4 mg Temazepam (Restoril) 15 mg PO HS PRN; Protocol PRN Reason: Insomnia Stop: 10/03/19 21:04 General: alert HEENT: NC/AT, PERRLA, EOMI, anicteric sclerae, throat clear Neck: Supple, No JVD, No thyromegaly, +2 carotid pulse wo bruit, No LAD Lungs: CTAB Cardiovascular: RRR, Normal S1, Normal S2, without murmur Abdomen: soft, tender Extremities: clear Neurological: no change Internal Medicine Assmt/Plan - Assessment Assessment: 1.ACUTE ABDOMINAL PAIN. 2.UTI. 3.HTN - Plan Plan: CONTINUE ON CURRENT MEDICATION AND DIET.DC PLANNING Nutritional Asmnt/Malnutr-PDOC - Dietary Evaluation Malnutrition Findings (Please click <Entered> for more info): Nutritional Asmnt/Malnutrition Start: 08/03/19 14: 23 Text: Status: Complete Freq: Protocol: Document 08/03/19 14:23 [email or web address] (Rec: 08/03/19 14:39 OKSANA [email or web address]) Nutritional Asmnt/Malnutrition Patient General Information Nutritional Screening Low Risk Consult Diagnosis Dehydration and UTI Pertinent Medical Hx/Surgical Hx HTN, Dementia Subjective Information IA/Consult: Wound RT lower flank Pt is a 83-year-old female admitted on 08/02 d/t dehydration and UTI. Per ED physician chart (08/02), PT fell evening on 08/01 and again at 11am on 08/02; Pt has been anorexic x 5-6 days and had diarrhea 3x/day for 3 days. Received consult order for wound - RT lower flank. Per RN Tri, there is a small active wound at RT lower flank and stage not noted. Pending photo taken for wound and wound care assessment. Pt ate 25% breakfast today. Visited Pt at lunch time, Pt stated she currently does not have appetite and usually does not eat breakfast at home. Pt ate 50% lunch and has no concern on food texture. Assessed Pts food preference and forwarded to sign out clerk. Pt requested Ensure Enlive since she prefers liquids. Added Ensure Enlive BID for improved PO intake and meeting nutrient needs to support wound healing . Will continue monitor on PO intake and wound healing progress. HT: 51 WT: 141 LB (64.09 kg) BMI: 26.64 (Overweight) GI: WNL, Soft, Flat, Non- Tender BM: Not Noted I/O: 120/Not Noted Skin: Warm, Dry, Elastic, Intact, Area of Concern Wound: Pressure area and incision on RT lower flank Lionel: 16 Diet Order: Mechanical Soft Estimated Energy Needs: ( Geriatric, CBW) 8340-2454 kcals (25-30 kcals/ kg) 64-77 g Pro (1-1.2 g/kg) 3320-1359 ml (25-30 ml/kg) Current Diet Order/ Nutrition Support Mechanical Soft Pertinent Medications Cozaar, D5-0.45ns w/20 Meq Kcl Pertinent Labs 08/02: Hgb/Hct 12.3/36.1, Na 134 , Glucose 116 Nutritional Hx/Data Height 1.55 m Height (Calculated Centimeters) 154.9 Current Weight (lbs) 63.957 kg Weight (Calculated Kilograms) 64.0 Weight (Calculated Grams) 14029.5 [place] Body Weight 47.8 kg % [place] Body Weight 134 Body Mass Index (BMI) 26.6 Weight Status Overweight GI Symptoms Last BM Not Noted Skin Integrity/Comment: Skin: Warm, Dry, Elastic, Intact, Area of Concern Wound: Pressure area and incision on RT lower flank Lionel: 16 Current %PO Poor (25-49%) Estimated Nutritional Goals BEE in Kcals: Using Current wt Calories/Kcals/Kg 25-30 Kcals Calculated 9176-1363 Protein: Using Current wt Protein g/k-1.2 Protein Calculated 64-77 Fluid: ml 7925-6986 ml (25-30 ml/kg) Nutritional Problem 1. Problem Problem Inadequate oral intake Etiology r/t poor appetite Signs/Symptoms: aeb PO intake 25% at breakfast and 50% lunch on 08/03 per Pt self-reported Intervention/Recommendation Comments 1.Continue with mechanical soft diet as ordered. 2.Added Ensure Enlive BID for improved PO intake and meeting nutrient needs to support wound healing (completed). 3.RN to encourage improved PO intake. Expected Outcomes/Goals Expected Outcomes/Goals 1.PO intake to meet 75% of nutritional needs. 2.Monitor PO intake, wt, nutrition related labs, and skin integrity to trend WNL. 3.F/U as high risk in 2-3 days , 08/05-08/06
[2019-08-07] MEDS: Lactobacillus Rhamnosus GG 15 Billion CFU CAP.SPRINK PO SCH (08:12)
[2019-08-07] MEDS: Cefepime 1 GM in Sodium Chloride 0.9% 50 ML IV SCH ×2 (08:13→20:26)
[2019-08-07] MEDS: Enoxaparin 40 mg/0.4 mL 0.4mL Syr SUBQ SCH (08:16)
--- NOTE | 2019-08-08 03:24 | Discharge Summary ---
DATE OF DISCHARGE: 08/07/2019 FINAL DIAGNOSES: 1. Acute metabolic encephalopathy. 2. Urinary tract infection. 3. Hypertension. 4. Degenerative joint disease. HISTORY OF PRESENT ILLNESS: The patient is an 83-year-old female with long history of hypertension, degenerative joint disease who presented to the Emergency Room with acute confusion. Initial workup sent for acute metabolic encephalopathy, urinary tract infection. The patient admitted to the hospital, started on IV fluid, antibiotic. PHYSICAL EXAMINATION: VITAL SIGNS: Temperature 99, heart rate 94, blood pressure 149/72. CHEST: Clear to auscultation. HEART: Regular rate and rhythm. ABDOMEN: Soft, bowel sounds positive. EXTREMITIES: No edema. NEUROLOGICAL: She is confused. LABORATORY DATA: White blood cells 7.5, hemoglobin 12.3, hematocrit 36.1. Sodium 134, potassium 3.6, BUN 19, creatinine 0.8. COURSE OF HOSPITALIZATION: During hospitalization, the patient improved clinically. On 08/04/2019, the patient was more awake, more alert. No chest pain, no shortness of breath. She has some abdominal pain. On 08/05/2019, the patient threw up a few times. Abdominal ultrasound ordered. Amylase and lipase were negative. On 08/06/2019, the patient was feeling well, eating well. Chest: Clear to auscultation. Heart: Regular rate and rhythm. Abdomen: Soft, bowel sounds positive. White blood cells 8.8, hemoglobin 13.5. Sodium 128, potassium 3.9. On 08/07/2019, the patient feels well. No chest pain, no shortness of breath. Chest: Clear to auscultation. Abdomen: Soft, bowel sounds positive. The patient is going to be transferred to [facility] to continue her medication and diet. CONDITION ON DISCHARGE: Stable. MEDICATIONS: Follow discharge reconciliation. JOB# [id number]
== END 2019-08-07 22:00 | DRG 689 ==
LOC: ER 18:33 → MSI 21:10
PROVIDERS: ADMIT Family Medicine; ATTEND Family Medicine
DX: N39.0 Urinary tract infection, site not specified (principal); G93.41 Metabolic encephalopathy; I10 Essential (primary) hypertension; M19.90 Unspecified osteoarthritis, unspecified site; F03.90 Unspecified dementia, unspecified severity, without behavioral disturbance, psychotic disturbance, mood disturbance, and anxiety; Z87.891 Personal history of nicotine dependence
CPT/HCPCS: 36415-UA; 70450-TC; 71045-TC; 72125-TC; 72170-TC; 76700-TC; 80048-TC; 80053-TC; 81001-TC; 82150-TC; 83690-TC; 85025-TC; 87086-90; 90784; 93005; J0360; J0692; J1650; J2405; J7030; Z7610